=== PATIENT | female | born 1985 ===

== ENCOUNTER 2019-06-15 20:28 | Inpatient (IN) | payer MEDICAID ==
[2019-06-15] MEDS ORDERED: LACTATED RINGERS 500 ML IV ONE (21:16)
[2019-06-15] MEDS ORDERED: SODIUM CHLORIDE NASAL SPRAY 44ML NS PRN (21:30)
[2019-06-15] MEDS ORDERED: ONDANSETRON 4 MG/2 ML INJ IV PRN (21:30)
[2019-06-15] MEDS ORDERED: SIMETHICONE 80 MG CHEW TAB PO PRN (21:30)
[2019-06-15] MEDS ORDERED: diphenhydrAMINE 25 MG CAP PO PRN (21:30)
[2019-06-15] MEDS ORDERED: ACETAMINOPHEN 325 MG TAB PO PRN (21:30)
[2019-06-15] MEDS ORDERED: MAGNESIUM HYDROXIDE (MOM) ORAL LIQD UDC PO PRN (21:30)
[2019-06-15] MEDS ORDERED: MAGNESIUM SULFATE 4 GM/100 ML BAG IV ONE (21:37)
[2019-06-15] MEDS: LACTATED RINGERS 1,000 ML IV SCH (22:47)
[2019-06-15] MEDS: BETAMET ACET/BETAMET NA PH 6 MG/ML INJ 5 ML MDV IM SCH (23:26)
[2019-06-15] MEDS: AMPICILLIN/NS 2 GM/100 ML 2 GM/100 ML BAG IV SCH (23:30)
[2019-06-15 23:36] LABS: Basophils % (Auto) 0.2 % (0.0-1.8); Eosinophils # (Auto) 0.1 K/mm3 (0.0-0.4); Eosinophils % (Auto) 0.6 % (0.0-4.3); Hematocrit 36.7 % (30.3-42.9); Hemoglobin 12.3 gm/dl (10.1-14.3); Lymphocytes # (Auto) 2.4 K/mm3 (1.2-5.4); Lymphocytes % (Auto) 21.3 % (13.4-35.0); Mean Corpuscular HGB Conc 34 % (30-34); Mean Corpuscular Volume 91 fl (79-97); Monocytes # (Auto) 0.9 K/mm3 (0.0-0.8); Monocytes % (Auto) 7.9 % (0.0-7.3); Platelet Count 287 K/mm3 (140-440); Red Blood Count 4.05 M/mm3 (3.65-5.03); Red Cell Distribution Width 13.1 % (13.2-15.2)
[2019-06-16 04:47] LABS: Bilirubin,Urine NEG (Negative); Blood,Urine MOD (Negative); Color,Urine Straw (Yellow); Mucus,Urine FEW /HPF; Protein,Urine <15 mg/dL mg/dL (Negative); Urobilinogen,Urine < 2.0 mg/dL (<2.0)
--- NOTE | 2019-06-16 05:49 | History and Physical Report ---
History of Present Illness Date of examination: 06/16/19 Date of admission: 06/15/19 21:31 Chief complaint: my water broke History of present illness: Pt is a 33 year old primigravida LAURA 08/14/19 at 31w4d who presents with complaint of leakage of fluid since 0730 am on 06/15/19. She reports leakage of clear fluid but pt initially was unsure if it was her amniotic fluid. She wore a pad and it was full of fluid over the course of the day so she presented to the hospital. She reports irregular contractions and denies vaginal bleeding. She has had care at [facility] since transfer into care at 22 weeks that has been complicated by cystitis in December 2018 with negative test of cure in February 2019. Her GBS status is unknown. Past History Past Medical History: no pertinent history Past Surgical History: no surgical history [employer] History: abnormal PAP smear (HPV ) Family/Genetic History: diabetes Social history: no significant social history - Obstetrical History Expected Date of Delivery: 08/14/19 Actual Gestation: 31 Week(s) 5 Day(s) : 1 Medications and Allergies Allergies Allergy/AdvReac Type Severity Reaction Status Date / Time No Known Allergies Allergy Verified 06/15/19 21:16 Home Medications Medication Instructions Recorded Confirmed Last Taken Type No Known Home Medications [No 06/16/19 06/16/19 Unknown History Reported Home Medications] Active Meds: Active Medications Acetaminophen (Tylenol) 650 mg PO Q4H PRN PRN Reason: Pain MILD(1-3)/Fever >100.5/ELIZONDO Amoxicillin (Trimox) 250 mg PO Q8HR KELLY; Protocol Stop: 06/22/19 21:59 Betamethasone Acet/Betameth SodPhos (Celestone Soluspan) 12 mg IM Q24H KELLY Stop: 06/16/19 22:01 Last Admin: 06/15/19 23:26 Dose: 12 mg Documented by: Diphenhydramine HCl (Benadryl) 25 mg PO Q6H PRN PRN Reason: Itching Docusate Sodium (Colace) 100 mg PO Q12H PRN PRN Reason: Constipation Erythromycin (Erythromycin Base) 250 mg PO Q8HR KELLY; Protocol Stop: 06/22/19 21:59 Lactated Ringer's (Lactated Ringers) 1,000 mls @ 125 mls/hr IV DIRECT KELLY Last Admin: 06/15/19 22:47 Dose: 75 mls/hr Documented by: Ampicillin Sodium (Ampicillin/Ns 2 Gm/100 Ml) 2 gm in 100 mls @ 100 mls/hr IV Q6HR KELLY; Protocol Stop: 06/17/19 18:59 Erythromycin Lactobionate 250 (mg/ Sodium Chloride) 100 mls @ 100 mls/hr IV Q6HR KELLY; Protocol Stop: 06/17/19 18:59 Magnesium Sulfate (Magnesium Sulfate 40gm/1000ml) 40 gm in 1,000 mls @ 50 mls/hr IV DIRECT KELLY Magnesium Hydroxide (Milk Of Magnesia) 30 ml PO QHS PRN PRN Reason: Laxative Effect Multivitamins/Iron/Calcium ( Vitamin) 1 each PO QDAY KELLY Ondansetron HCl (Zofran) 4 mg IV Q6H PRN PRN Reason: Nausea And Vomiting Simethicone (Mylicon) 80 mg PO Q6H PRN PRN Reason: Gas pain Sodium Chloride (Deep Sea) 2 spray NS Q4H PRN PRN Reason: Congestion Review of Systems All systems: negative Constitutional: no fever, no chills Gastrointestinal: no abdominal pain - Vital Signs Vital signs: Vital Signs Temp Pulse Resp BP Pulse Ox 97.9 F 75 16 107/65 98 06/15/19 20:40 06/15/19 20:40 06/15/19 20:40 06/15/19 20:40 06/15/19 20:40 Temp Pulse Resp BP Pulse Ox 98.3 F 78 18 128/60 100 06/15/19 22:01 06/16/19 05:44 06/15/19 22:01 06/16/19 05:44 06/16/19 05:44 - Physical Exam Breasts: Positive: deferred Cardiovascular: Regular rate Lungs: Positive: Clear to auscultation Abdomen: Positive: soft (gravid ) Genitourinary (Female): Positive: normal external genitalia Uterus: Positive: enlarged (gravid ) - Obstetrical FHR: auscultation normal Cervical Dilatation: 1 (per RN ) Results Result Diagrams: 06/15/19 22:15 Abnormal lab results 06/15/19 Range/Units 22:15 WBC 11.5 H (4.5-11.0) K/mm3 RDW 13.1 L (13.2-15.2) % [place] % (Auto) 7.9 H (0.0-7.3) % [place] # 0.9 H (0.0-0.8) K/mm3 Seg Neutrophils # 8.0 H (1.8-7.7) K/mm3 All other labs normal. Assessment and Plan A: IUP at 31w4d PPROM P: Admit to antepartum service Latency Antibiotics Magnesium sulfate for neuroprotection Betamethasone course for lung maturity MFM consult NICU consult Closely monitor for signs of chorioamnionitis
[2019-06-16] MEDS: AMPICILLIN/NS 2 GM/100 ML 2 GM/100 ML BAG IV SCH ×3 (05:55→19:20)
[2019-06-16] MEDS: ERYTHROMYCIN LACTOBIONATE 250 MG in SODIUM CHLORIDE 0.9% 100 ML IV SCH ×4 (06:20→20:15)
--- NOTE | 2019-06-16 08:47 | Ultrasound Report ---
Ultrasound OB biophysical profile INDICATION: Premature rupture membranes, well being FINDINGS: respiration, tone and motion are well visualized and normal. Amniotic fluid volume is normal. Biophysical profile score is 8/8. heart rate is 148 bpm IMPRESSION: The biophysical profile score is 8/8. Signer Name: Sarita Combs MD Signed: 06/16/2019 1:42 AM Workstation Name: [id number]
--- NOTE | 2019-06-16 08:47 | Ultrasound Report ---
ULTRASOUND OBSTETRIC, limited, follow-up INDICATION / CLINICAL INFORMATION: PPROM, IUP at 31 wks. Clinical Gestational Age (GA): 31 weeks 4 days TECHNIQUE: Transabdominal. COMPARISON: None available. FINDINGS: There is a single intrauterine . Biparietal Diameter = 7.0 cm = 28 weeks, 1 day(s). Head Circumference = 27.5 cm = 30 weeks, 1 day(s). Abdominal Circumference = 28.8 cm = 32 weeks, 5 day(s). Femur Length = 6.1 cm = 31 weeks, 3 day(s). Average Ultrasound Age (AUA) = 30 weeks, 4 day(s). Heart Rate: 148 beats per minute. Estimated Weight in grams (if calculated): 4 lbs. 0 oz. (1816 g) Estimated Weight Growth Percentile (if calculated): 42 percentile Position: cephalic. Cervix: closed. Length in cm (if measured): 1.7 cm Placenta: Left lateral, grade 2 and free of the os. Amniotic Fluid Volume: normal Amniotic Fluid Index (SHAHRZAD) in cm (if calculated): 12.3 cm. Maternal Adnexa: No significant abnormality. IMPRESSION: 1. Single, living intrauterine with estimated sonographic age of 30 weeks, 4 day(s). 2. No significant sonographic abnormality. 3. Cervical length is measuring 1.7 cm. Signer Name: Sarita Combs MD Signed: 06/16/2019 1:45 AM Workstation Name: [id number]
--- NOTE | 2019-06-16 10:45 | Consultation ---
History of Present Illness Reason for consult: PROM (Patient is a 33 yo female reports LAURA of 08/14/2019 at 31.4 weeks No records available for review . Prior to today's consult pt has not been seen by [facility] . Reports LOF/ROM 06/15/19 @ 7 am however did not present to [facility] until 06/15/19 8 pm . Denies VB , temp/chills , ABD pain , DFM , and regular contractions. Occasional ctx was noted ), other Past History - Obstetrical History : 1 Medications and Allergies Allergies Allergy/AdvReac Type Severity Reaction Status Date / Time No Known Allergies Allergy Verified 06/15/19 21:16 Active Meds: Active Medications Acetaminophen (Tylenol) 650 mg PO Q4H PRN PRN Reason: Pain MILD(1-3)/Fever >100.5/ELIZONDO Amoxicillin (Trimox) 250 mg PO Q8HR KELLY; Protocol Stop: 06/22/19 21:59 Betamethasone Acet/Betameth SodPhos (Celestone Soluspan) 12 mg IM Q24H KELLY Stop: 06/16/19 22:01 Last Admin: 06/15/19 23:26 Dose: 12 mg Documented by: Diphenhydramine HCl (Benadryl) 25 mg PO Q6H PRN PRN Reason: Itching Docusate Sodium (Colace) 100 mg PO Q12H PRN PRN Reason: Constipation Erythromycin (Erythromycin Base) 250 mg PO Q8HR KELLY; Protocol Stop: 06/22/19 21:59 Lactated Ringer's (Lactated Ringers) 1,000 mls @ 125 mls/hr IV DIRECT KELLY Last Admin: 06/15/19 22:47 Dose: 75 mls/hr Documented by: Ampicillin Sodium (Ampicillin/Ns 2 Gm/100 Ml) 2 gm in 100 mls @ 100 mls/hr IV Q6HR KELLY; Protocol Stop: 06/17/19 18:59 Last Admin: 06/16/19 05:55 Dose: 100 mls/hr Documented by: Erythromycin Lactobionate 250 (mg/ Sodium Chloride) 100 mls @ 100 mls/hr IV Q6HR KELLY; Protocol Stop: 06/17/19 18:59 Last Admin: 06/16/19 06:20 Dose: 100 mls/hr Documented by: Magnesium Sulfate (Magnesium Sulfate 40gm/1000ml) 40 gm in 1,000 mls @ 50 mls/hr IV DIRECT KELLY Magnesium Hydroxide (Milk Of Magnesia) 30 ml PO QHS PRN PRN Reason: Laxative Effect Multivitamins/Iron/Calcium ( Vitamin) 1 each PO QDAY KELLY Ondansetron HCl (Zofran) 4 mg IV Q6H PRN PRN Reason: Nausea And Vomiting Simethicone (Mylicon) 80 mg PO Q6H PRN PRN Reason: Gas pain Sodium Chloride (Deep Sea) 2 spray NS Q4H PRN PRN Reason: Congestion Review of Systems Constitutional: no fever, no chills Eyes: other (denies VB ) Ears, nose, mouth and throat: no headache Cardiovascular: no rapid/irregular heart beat, no edema, no shortness of breath Respiratory: no shortness of breath Breasts: deferred Gastrointestinal: no vomiting, no diarrhea Genitourinary: leakage of fluid, contractions (denies regular contractions ), no vaginal bleeding, no vaginal discharge, no pelvic pain Musculoskeletal: no low back pain Integumentary: no rash Psychiatric: no depression Endocrine: other (BMZ for FLM in progress ), no high blood sugars Allergic/Immunologic: no wheezing - Vital Signs Vital signs: Vital Signs Temp Pulse Resp BP Pulse Ox 97.9 F 75 16 107/65 98 06/15/19 20:40 06/15/19 20:40 06/15/19 20:40 06/15/19 20:40 06/15/19 20:40 Temp Pulse Resp BP Pulse Ox 98.3 F 100 H 18 92/51 99 06/15/19 22:01 06/16/19 10:39 06/15/19 22:01 06/16/19 10:05 06/16/19 10:39 - Physical Exam Breasts: Positive: deferred Cardiovascular: Regular rate Lungs: Positive: Normal air movement Abdomen: Positive: other (gravid ). Negative: tenderness, guarding Cervix: Positive: other (see OB's note for cervical exam assessment ) Uterus: Positive: other (gravid). Negative: tender Extremities: Positive: normal Deep Tendon Reflex Grade: Normal +2 - Obstetrical FHR: category 1 Uterine Contraction Monitor Mode: External Uterine Contraction Pattern: Irregular Uterine Contraction Intensity: Mild Results Result Diagrams: 06/15/19 22:15 Abnormal lab results 06/15/19 Range/Units 22:15 WBC 11.5 H (4.5-11.0) K/mm3 RDW 13.1 L (13.2-15.2) % [place] % (Auto) 7.9 H (0.0-7.3) % [place] # 0.9 H (0.0-0.8) K/mm3 Seg Neutrophils # 8.0 H (1.8-7.7) K/mm3 All other labs normal. Ultrasound: report reviewed (see [facility] chart for full report: BPP 03/11 with SHAHRZAD of 12.3 cm and shortened cervical length assessment of 1.7 cm ) Assessment and Plan A) - IUP @ 31.4 weeks - PPROM @ 06/15/19 - Occasional contraction - Cervical incompetence [facility] US cervical length assessment of 1.7 cm - Afebrile / no sxs of chorio - [facility] U/S reassuring growth assessment with EFW 41% - BMZ for FLM in progress - MgSO4 for neuroprotection in progress - IV ABX for GBS prophylactic in progress P ) In agreement with admission Continuous monitoring complete BMZ MgSO4 per protocol IV ABX per protocol Weekly CBC Twice a week BPP Q2 weeks interval growth assessment NICU consult Obtain PNR Delivery at 34 weeks Delivery with concern for Chorio , distress, and /or maternal / compromise With subsequent early evaluation for current concern of Cervical incompetence With any concerns or further evaluation notify the cotton candy maker [facility] provider
[2019-06-16] MEDS: PRENATAL VIT27-FE FUMARATE-FOLIC ACID VIT TAB PO SCH (11:05)
--- NOTE | 2019-06-16 20:23 | Consultation ---
Consult Note - Parent Education I met with parent(s) and discussed the following:: Need for NICU admission, Poss ible need for intubation and surfactant or other resp support, Temperature regulation, Head ultrasounds to evaluate IVH, Eye exams for ROP screening, Possible need for IV fluids/TPN and IV antibiotics, Possible need for umbilical lines, Importance of providing breast milk & encouraged pumping aft delivery (mother expressed interest in EBF/DBM), Donor breast milk if baby meets criteria after , Slow feeding advancement and monitoring of tolerance. NG/OG feeds, Need to monitor for jaundice, Data for survival & survival without significant co-morbidities Parent(s) demonstrated understanding of all the information:: Yes Assessment and Plan - Assessment Gestation:: 31 (31 3/7 weeker) Estimated Weight: 1816 gms Baby's name: N/A Additional Comment: 33YO mother. complicated by PPROM (ROM 06/15/19 @ 0394). Infant received x1 betamethasone. Will rec'd 2nd dose tonight. Mother is on amp and mag. Mother does not know infant's sex and anticipate to know at time of delivery. - Plan Plan: Agree with Mag & steroids Will attend delivery Please call NICU with questions
[2019-06-16] MEDS: BETAMET ACET/BETAMET NA PH 6 MG/ML INJ 5 ML MDV IM SCH (22:15)
[2019-06-16] MEDS: DOCUSATE SODIUM 100 MG CAP PO PRN (22:20)
[2019-06-17] MEDS: ERYTHROMYCIN LACTOBIONATE 250 MG in SODIUM CHLORIDE 0.9% 100 ML IV SCH ×4 (00:35→21:22)
[2019-06-17] MEDS: AMPICILLIN/NS 2 GM/100 ML 2 GM/100 ML BAG IV SCH ×4 (06:00→19:17)
--- NOTE | 2019-06-17 08:00 | Progress Note ---
Assessment and Plan A: IUP at 31w5d s/p betamethasone on 06/15 and 06/16; magnesium sulfate for neuroprotection; BPP /8 06/15/19; no signs/symptoms of chorioamnionitis at this time PPROM on latency antibiotics P: Continue current management Subjective - Subjective Date of service: 06/17/19 Principal diagnosis: IUP at 31w5d, PPROM Interval history: No issues overnight. Patient reports: loss of fluid (per HPI ), movement normal, no new complaints, no vaginal bleeding, no contractions Objective - Vital Signs Vital Signs: Vital Signs - 12hr 06/16/19 06/16/19 06/16/19 20:04 20:05 20:09 Temperature Pulse Rate 97 H 100 H 104 H Respiratory Rate Blood Pressure 102/62 O2 Sat by Pulse 100 98 Oximetry 06/16/19 06/16/19 06/16/19 20:14 20:19 20:24 Temperature Pulse Rate 93 H 91 H 100 H Respiratory Rate Blood Pressure O2 Sat by Pulse 98 99 99 Oximetry 06/16/19 06/16/19 06/16/19 20:29 20:36 20:41 Temperature Pulse Rate 90 97 H 92 H Respiratory Rate Blood Pressure O2 Sat by Pulse 99 99 100 Oximetry 06/16/19 06/16/19 06/16/19 20:46 20:51 20:56 Temperature Pulse Rate 98 H 96 H 97 H Respiratory Rate Blood Pressure O2 Sat by Pulse 99 100 100 Oximetry 06/16/19 06/16/19 06/16/19 21:01 21:06 21:11 Temperature Pulse Rate 102 H 100 H 103 H Respiratory Rate Blood Pressure O2 Sat by Pulse 99 98 99 Oximetry 06/16/19 06/16/19 06/16/19 21:15 21:16 21:21 Temperature 97.5 F L Pulse Rate 103 H 99 H Respiratory 16 Rate Blood Pressure O2 Sat by Pulse 99 99 Oximetry 06/16/19 06/16/19 06/16/19 21:26 21:31 21:48 Temperature Pulse Rate 105 H 96 H 107 H Respiratory Rate Blood Pressure O2 Sat by Pulse 98 99 98 Oximetry 06/16/19 06/16/19 06/16/19 21:53 21:58 22:03 Temperature Pulse Rate 98 H 98 H 100 H Respiratory Rate Blood Pressure O2 Sat by Pulse 99 99 99 Oximetry 06/16/19 06/16/19 06/16/19 22:05 22:08 22:13 Temperature Pulse Rate 105 H 97 H 95 H Respiratory Rate Blood Pressure 101/51 O2 Sat by Pulse 99 98 Oximetry 06/16/19 06/16/19 06/16/19 22:18 22:23 22:28 Temperature Pulse Rate 97 H 95 H 90 Respiratory Rate Blood Pressure O2 Sat by Pulse 99 99 99 Oximetry 06/16/19 06/16/19 06/16/19 22:33 22:38 22:43 Temperature Pulse Rate 92 H 97 H 92 H Respiratory Rate Blood Pressure O2 Sat by Pulse 99 99 99 Oximetry 06/16/19 06/16/19 06/16/19 22:48 22:53 22:58 Temperature Pulse Rate 90 89 82 Respiratory Rate Blood Pressure O2 Sat by Pulse 99 98 99 Oximetry 06/16/19 06/16/19 06/16/19 23:03 23:08 23:13 Temperature Pulse Rate 90 109 H 88 Respiratory Rate Blood Pressure O2 Sat by Pulse 98 97 97 Oximetry 06/16/19 06/16/19 06/16/19 23:15 23:18 23:23 Temperature 97.6 F Pulse Rate 87 87 Respiratory 15 Rate Blood Pressure 97/52 O2 Sat by Pulse 97 97 Oximetry 06/16/19 06/16/19 06/16/19 23:28 23:33 23:38 Temperature Pulse Rate 85 89 86 Respiratory Rate Blood Pressure O2 Sat by Pulse 97 97 97 Oximetry 06/16/19 06/16/19 06/16/19 23:43 23:48 23:53 Temperature Pulse Rate 88 102 H 89 Respiratory Rate Blood Pressure O2 Sat by Pulse 97 97 97 Oximetry 06/16/19 06/17/19 06/17/19 23:58 00:03 00:08 Temperature Pulse Rate 92 H 85 90 Respiratory Rate Blood Pressure O2 Sat by Pulse 98 99 99 Oximetry 06/17/19 06/17/19 06/17/19 00:13 00:18 00:23 Temperature Pulse Rate 106 H 91 H 83 Respiratory Rate Blood Pressure 88/54 O2 Sat by Pulse 99 99 98 Oximetry 06/17/19 06/17/19 06/17/19 00:28 00:33 00:38 Temperature Pulse Rate 95 H 83 91 H Respiratory Rate Blood Pressure O2 Sat by Pulse 99 99 99 Oximetry 06/17/19 06/17/19 06/17/19 00:43 00:48 00:53 Temperature Pulse Rate 89 86 84 Respiratory Rate Blood Pressure O2 Sat by Pulse 98 98 98 Oximetry 06/17/19 06/17/19 06/17/19 00:58 01:03 01:08 Temperature Pulse Rate 89 85 85 Respiratory Rate Blood Pressure O2 Sat by Pulse 98 98 98 Oximetry 06/17/19 06/17/19 06/17/19 01:13 01:18 01:23 Temperature Pulse Rate 84 86 103 H Respiratory Rate Blood Pressure 99/58 O2 Sat by Pulse 98 98 98 Oximetry 06/17/19 06/17/19 06/17/19 01:28 01:33 01:38 Temperature Pulse Rate 84 88 97 H Respiratory Rate Blood Pressure O2 Sat by Pulse 98 98 99 Oximetry 06/17/19 06/17/19 06/17/19 01:43 01:48 01:53 Temperature Pulse Rate 99 H 106 H 92 H Respiratory Rate Blood Pressure O2 Sat by Pulse 98 99 98 Oximetry 06/17/19 06/17/19 06/17/19 01:58 02:03 02:08 Temperature Pulse Rate 91 H 92 H 86 Respiratory Rate Blood Pressure O2 Sat by Pulse 98 98 99 Oximetry 06/17/19 06/17/19 06/17/19 02:13 02:18 02:23 Temperature Pulse Rate 89 90 91 H Respiratory Rate Blood Pressure 101/59 O2 Sat by Pulse 98 98 98 Oximetry 06/17/19 06/17/19 06/17/19 02:28 02:33 02:37 Temperature 98.0 F Pulse Rate 88 90 Respiratory 16 Rate Blood Pressure O2 Sat by Pulse 98 98 Oximetry 06/17/19 06/17/19 06/17/19 02:38 02:43 02:48 Temperature Pulse Rate 90 91 H 90 Respiratory Rate Blood Pressure O2 Sat by Pulse 97 97 97 Oximetry 06/17/19 06/17/19 06/17/19 02:53 02:58 03:03 Temperature Pulse Rate 89 88 89 Respiratory Rate Blood Pressure O2 Sat by Pulse 97 97 97 Oximetry 06/17/19 06/17/19 06/17/19 03:08 03:13 03:18 Temperature Pulse Rate 90 90 90 Respiratory Rate Blood Pressure O2 Sat by Pulse 96 97 97 Oximetry 06/17/19 06/17/1906/17/19 03:23 03:28 03:33 Temperature Pulse Rate 90 90 92 H Respiratory Rate Blood Pressure 88/57 O2 Sat by Pulse 97 97 97 Oximetry 06/17/19 06/17/19 06/17/19 03:38 03:43 03:48 Temperature Pulse Rate 89 86 85 Respiratory Rate Blood Pressure O2 Sat by Pulse 97 98 97 Oximetry 06/17/19 06/17/19 06/17/19 03:53 03:58 04:03 Temperature Pulse Rate 93 H 93 H 98 H Respiratory Rate Blood Pressure O2 Sat by Pulse 98 99 98 Oximetry 06/17/19 06/17/19 06/17/19 04:08 04:13 04:18 Temperature Pulse Rate 93 H 89 89 Respiratory Rate Blood Pressure O2 Sat by Pulse 99 99 99 Oximetry 06/17/19 06/17/19 06/17/19 04:23 04:28 04:30 Temperature 97.5 F L Pulse Rate 94 H 96 H Respiratory 15 Rate Blood Pressure 96/53 O2 Sat by Pulse 99 98 99 Oximetry 06/17/19 06/17/19 06/17/19 04:33 04:38 04:43 Temperature Pulse Rate 91 H 92 H 94 H Respiratory Rate Blood Pressure O2 Sat by Pulse 99 99 98 Oximetry 06/17/19 06/17/19 06/17/19 04:48 04:53 04:58 Temperature Pulse Rate 95 H 93 H 90 Respiratory Rate Blood Pressure O2 Sat by Pulse 99 99 99 Oximetry 06/17/19 06/17/19 06/17/19 05:03 05:08 05:13 Temperature Pulse Rate 88 90 94 H Respiratory Rate Blood Pressure O2 Sat by Pulse 98 98 99 Oximetry 06/17/19 06/17/19 06/17/19 05:18 05:23 05:24 Temperature Pulse Rate 101 H 101 H 96 H Respiratory Rate Blood Pressure 90/53 O2 Sat by Pulse 98 99 Oximetry 06/17/19 06/17/19 06/17/19 05:28 05:33 05:38 Temperature Pulse Rate 97 H 95 H 96 H Respiratory Rate Blood Pressure O2 Sat by Pulse 99 98 99 Oximetry 06/17/19 06/17/19 06/17/19 05:43 05:48 05:53 Temperature Pulse Rate 93 H 95 H 91 H Respiratory Rate Blood Pressure O2 Sat by Pulse 99 98 98 Oximetry 06/17/19 06/17/19 06/17/19 05:58 06:03 06:06 Temperature Pulse Rate 69 68 170 H Respiratory Rate Blood Pressure O2 Sat by Pulse 87 86 84 Oximetry 06/17/19 06/17/19 06/17/19 06:12 06:17 06:19 Temperature Pulse Rate 106 H 53 L Respiratory Rate Blood Pressure O2 Sat by Pulse 87 83 L 85 Oximetry 06/17/19 06/17/19 06/17/19 06:23 06:24 06:29 Temperature Pulse Rate 83 82 77 Respiratory Rate Blood Pressure 106/59 O2 Sat by Pulse 99 100 Oximetry 06/17/19 06/17/19 06/17/19 06:34 06:39 06:44 Temperature Pulse Rate 91 H 78 88 Respiratory Rate Blood Pressure O2 Sat by Pulse 99 98 97 Oximetry 06/17/19 06/17/19 06/17/19 06:49 06:54 06:59 Temperature Pulse Rate 86 80 81 Respiratory Rate Blood Pressure O2 Sat by Pulse 97 96 97 Oximetry 06/17/19 06/17/19 06/17/19 07:04 07:09 07:14 Temperature Pulse Rate 80 81 86 Respiratory Rate Blood Pressure O2 Sat by Pulse 96 96 97 Oximetry 06/17/19 06/17/19 06/17/19 07:19 07:23 07:24 Temperature Pulse Rate 80 99 H 89 Respiratory Rate Blood Pressure 88/55 O2 Sat by Pulse 97 98 Oximetry 06/17/19 06/17/19 06/17/19 07:29 07:34 07:39 Temperature Pulse Rate 79 80 80 Respiratory Rate Blood Pressure O2 Sat by Pulse 96 97 97 Oximetry 06/17/19 06/17/19 06/17/19 07:44 07:49 07:54 Temperature Pulse Rate 88 95 H 95 H Respiratory Rate Blood Pressure O2 Sat by Pulse 96 98 98 Oximetry 06/17/19 07:57 Temperature 98.3 F Pulse Rate Respiratory 20 Rate Blood Pressure O2 Sat by Pulse Oximetry - Exam Breasts: deferred Abdomen: Present: soft (gravid ) Uterus: Present: normal (gravid ) FHR: auscultation normal Uterine Contraction Monitor Mode: External Uterine Contraction Pattern: Irregular Uterine Tone Measurement Phase: Resting Extremities: normal - Labs Labs: Abnormal Labs 06/15/19 06/16/19 06/16/19 22:15 06:16 08:43 WBC 11.5 H RDW 13.1 L [place] % (Auto) 7.9 H [place] # 0.9 H Seg Neutrophils # 8.0 H Magnesium 4.40 H 4.60 H 06/16/19 06/17/19 15:27 00:01 WBC RDW [place] % (Auto) [place] # Seg Neutrophils # Magnesium 4.80 H 4.80 H Laboratory Results - last 24 hr 06/16/19 06/16/19 06/16/19 06:16 08:43 15:27 Magnesium 4.40 H 4.60 H 4.80 H 06/17/19 00:01 Magnesium 4.80 H - Results US- obstetric: report reviewed
[2019-06-17] MEDS: DOCUSATE SODIUM 100 MG CAP PO PRN (10:21)
[2019-06-17] MEDS: PRENATAL VIT27-FE FUMARATE-FOLIC ACID VIT TAB PO SCH (10:21)
[2019-06-17] MEDS: LACTATED RINGERS 1,000 ML IV SCH (10:50)
[2019-06-17] MEDS: MAGNESIUM SULFATE 40GM/1000ML 40 GM/1,000 ML BAG IV SCH (10:55)
[2019-06-17] MEDS ORDERED: ceFAZolin/Water 2 GM/20 ML 0 GM/0 ML SYRINGE IV ONE (21:04)
[2019-06-18] MEDS: LACTATED RINGERS 1,000 ML IV SCH ×2 (02:25→15:38)
[2019-06-18] MEDS: ERYTHROMYCIN BASE 250 MG CAPSULE DR PO SCH ×3 (05:35→21:40)
[2019-06-18] MEDS: AMOXICILLIN 250 MG CAP PO SCH ×2 (05:36→21:40)
[2019-06-18] MEDS: MAGNESIUM SULFATE 40GM/1000ML 40 GM/1,000 ML BAG IV SCH (07:19)
--- NOTE | 2019-06-18 13:56 | Consultation ---
History of Present Illness Consult date: 06/18/19 Requesting physician: JASON JO History of present illness: APA/MFM - 06/18/19 Progress Note PROM (Patient is a 33 yo female reports LAURA of 08/14/2019 at 31 6/7 weeks Reports LOF/ROM 06/15/19 @ 7 am however did not present to [facility] until 06/15/19 8 pm . Denies vag bleeding temp paini Occasional ctx's Reports still leaking EFM occ ctx 140's no decels Abd NT EXT NT no edema Past History Past Medical History: no pertinent history Past Surgical History: no surgical history [employer] History: abnormal PAP smear (HPV ) Family/Genetic History: diabetes - Obstetrical History : 1 Medications and Allergies Allergies Allergy/AdvReac Type Severity Reaction Status Date / Time No Known Allergies Allergy Verified 06/15/19 21:16 Home Medications Medication Instructions Recorded Confirmed Last Taken Type No Known Home Medications [No 06/16/19 06/16/19 Unknown History Reported Home Medications] Active Meds: Active Medications Acetaminophen (Tylenol) 650 mg PO Q4H PRN PRN Reason: Pain MILD(1-3)/Fever >100.5/ELIZONDO Amoxicillin (Trimox) 250 mg PO Q8HR KELLY; Protocol Stop: 06/22/19 21:59 Last Admin: 06/18/19 05:36 Dose: 250 mg Documented by: Diphenhydramine HCl (Benadryl) 25 mg PO Q6H PRN PRN Reason: Itching Docusate Sodium (Colace) 100 mg PO Q12H PRN PRN Reason: Constipation Last Admin: 06/17/19 10:21 Dose: 100 mg Documented by: Erythromycin (Erythromycin Base) 250 mg PO Q8HR KELLY; Protocol Stop: 06/22/19 21:59 Last Admin: 06/18/19 05:35 Dose: 250 mg Documented by: Lactated Ringer's (Lactated Ringers) 1,000 mls @ 125 mls/hr IV DIRECT KELLY Last Admin: 06/18/19 02:25 Dose: 75 mls/hr Documented by: Magnesium Sulfate (Magnesium Sulfate 40gm/1000ml) 40 gm in 1,000 mls @ 50 mls/hr IV DIRECT KELLY Last Admin: 06/18/19 07:19 Dose: 2 gm/hr, 50 mls/hr Documented by: Magnesium Hydroxide (Milk Of Magnesia) 30 ml PO QHS PRN PRN Reason: Laxative Effect Multivitamins/Iron/Calcium ( Vitamin) 1 each PO QDAY KELLY Last Admin: 06/17/19 10:21 Dose: 1 each Documented by: Ondansetron HCl (Zofran) 4 mg IV Q6H PRN PRN Reason: Nausea And Vomiting Simethicone (Mylicon) 80 mg PO Q6H PRN PRN Reason: Gas pain Sodium Chloride (Deep Sea) 2 spray NS Q4H PRN PRN Reason: Congestion - Vital Signs Vital signs: Vital Signs Temp Pulse Resp BP Pulse Ox 97.9 F 75 16 107/65 98 06/15/19 20:40 06/15/19 20:40 06/15/19 20:40 06/15/19 20:40 06/15/19 20:40 Temp Pulse Resp BP Pulse Ox 99.5 F 78 16 97/57 98 06/18/19 11:17 06/18/19 13:48 06/18/19 04:00 06/18/19 13:09 06/18/19 13:48 Results Result Diagrams: 06/15/19 22:15 Abnormal lab results 06/17/19 06/17/19 06/18/19 Range/Units 15:47 21:18 00:08 Magnesium 4.70 H 4.40 H 4.50 H (1.7-2.3) mg/dL 06/18/19 Range/Units 05:36 Magnesium 4.50 H (1.7-2.3) mg/dL All other labs normal. Assessment and Plan Impression - Abebe IUP at 31 6/7 weeks - PPROM @ 06/15/19 - Occasional contraction - Cervical incompetence [facility] US cervical length assessment of 1.7 cm - Afebrile / no sxs of chorio - [facility] U/S reassuring growth assessment with EFW 41% - BMZ for FLM in progress - MgSO4 for neuroprotection - Completed - IV ABX for GBS prophylactic - IV Completed now on PO Recommendations Weekly CBC Twice a week BPP on Friday and Q2 weeks interval growth assessment NICU consult - Done per patient Obtain PNR Delivery at 34 weeks Delivery with concern for Chorio , distress, and /or maternal / compromise With subsequent early evaluation for current concern of Cervical incompetence Reviewed with Dr. Tammie Jo
--- NOTE | 2019-06-18 13:58 | Progress Note ---
Assessment and Plan : IUP at 31w6d s/p betamethasone on 06/15 and 06/16; magnesium sulfate for neuroprotection; BPP /06/15/19; no signs/symptoms of chorioamnionitis at this time PPROM on latency antibiotics - on po abx P: Continue current management BPP 2x weekly on Friday and closelymonitor maternal and status Subjective - Subjective Date of service: 06/18/19 Principal diagnosis: IUP at 31w5d, PPROM Patient reports: loss of fluid (per HPI ), movement normal, no new complaints, no vaginal bleeding, no contractions Objective - Vital Signs Vital Signs: Vital Signs - 12hr 06/18/19 06/18/19 06/18/19 01:54 01:59 02:04 Temperature Pulse Rate 81 86 81 Respiratory Rate Blood Pressure O2 Sat by Pulse 96 97 96 Oximetry 06/18/19 06/18/19 06/18/19 02:09 02:14 02:19 Temperature Pulse Rate 82 82 79 Respiratory Rate Blood Pressure O2 Sat by Pulse 97 97 96 Oximetry 06/18/19 06/18/19 06/18/19 02:24 02:29 02:58 Temperature Pulse Rate 78 79 70 Respiratory Rate Blood Pressure O2 Sat by Pulse 97 98 98 Oximetry 06/18/19 06/18/19 06/18/19 03:03 03:08 03:13 Temperature Pulse Rate 79 92 H 94 H Respiratory Rate Blood Pressure O2 Sat by Pulse 99 99 100 Oximetry 06/18/19 06/18/19 06/18/19 03:18 03:23 03:28 Temperature Pulse Rate 84 89 79 Respiratory Rate Blood Pressure O2 Sat by Pulse 99 99 99 Oximetry 06/18/19 06/18/19 06/18/19 03:33 03:38 03:43 Temperature Pulse Rate 83 81 76 Respiratory Rate Blood Pressure O2 Sat by Pulse 99 98 98 Oximetry 06/18/19 06/18/19 06/18/19 03:48 03:53 03:58 Temperature Pulse Rate 78 77 80 Respiratory Rate Blood Pressure O2 Sat by Pulse 98 98 98 Oximetry 06/18/19 06/18/19 06/18/19 04:00 04:03 04:08 Temperature 97.8 F Pulse Rate 96 H 83 Respiratory 16 Rate Blood Pressure O2 Sat by Pulse 99 99 Oximetry 06/18/19 06/18/19 06/18/19 04:10 04:13 04:18 Temperature Pulse Rate 80 90 77 Respiratory Rate Blood Pressure 84/48 O2 Sat by Pulse 99 98 Oximetry 06/18/19 06/18/19 06/18/19 04:23 04:28 04:33 Temperature Pulse Rate 77 75 76 Respiratory Rate Blood Pressure O2 Sat by Pulse 97 98 99 Oximetry 06/18/19 06/18/19 06/18/19 04:38 04:43 04:48 Temperature Pulse Rate 72 88 84 Respiratory Rate Blood Pressure O2 Sat by Pulse 99 99 100 Oximetry 06/18/19 06/18/19 06/18/19 04:53 04:58 05:03 Temperature Pulse Rate 79 77 71 Respiratory Rate Blood Pressure O2 Sat by Pulse 99 99 100 Oximetry 06/18/19 06/18/19 06/18/19 05:08 05:09 05:13 Temperature Pulse Rate 77 76 76 Respiratory Rate Blood Pressure 87/50 O2 Sat by Pulse 99 99 Oximetry 06/18/19 06/18/19 06/18/19 05:18 05:23 05:28 Temperature Pulse Rate 74 84 74 Respiratory Rate Blood Pressure O2 Sat by Pulse 97 97 97 Oximetry 06/18/19 06/18/19 06/18/19 05:33 05:38 05:43 Temperature Pulse Rate 74 70 80 Respiratory Rate Blood Pressure O2 Sat by Pulse 99 99 99 Oximetry 06/18/19 06/18/19 06/18/19 05:48 05:53 05:58 Temperature Pulse Rate 75 81 70 Respiratory Rate Blood Pressure O2 Sat by Pulse 99 99 98 Oximetry 06/18/19 06/18/19 06/18/19 06:03 06:08 06:09 Temperature Pulse Rate 84 68 73 Respiratory Rate Blood Pressure 75/44 O2 Sat by Pulse 96 97 Oximetry 06/18/19 06/18/19 06/18/19 06:13 06:18 06:23 Temperature Pulse Rate 72 75 72 Respiratory Rate Blood Pressure O2 Sat by Pulse 98 96 99 Oximetry 06/18/19 06/18/19 06/18/19 06:28 06:33 06:38 Temperature Pulse Rate 73 84 66 Respiratory Rate Blood Pressure O2 Sat by Pulse 98 99 99 Oximetry 06/18/19 06/18/19 06/18/19 06:43 06:48 06:53 Temperature Pulse Rate 69 67 81 Respiratory Rate Blood Pressure O2 Sat by Pulse 99 99 98 Oximetry 06/18/19 06/18/19 06/18/19 06:58 07:00 07:03 Temperature 98.3 F Pulse Rate 71 70 Respiratory Rate Blood Pressure O2 Sat by Pulse 98 99 Oximetry 06/18/19 06/18/19 06/18/19 07:08 07:11 07:13 Temperature Pulse Rate 77 73 71 Respiratory Rate Blood Pressure 80/48 O2 Sat by Pulse 98 99 Oximetry 06/18/19 06/18/19 06/18/19 07:18 07:23 07:28 Temperature Pulse Rate 72 76 73 Respiratory Rate Blood Pressure O2 Sat by Pulse 100 100 100 Oximetry 06/18/19 06/18/19 06/18/19 07:33 07:38 07:43 Temperature Pulse Rate 79 85 79 Respiratory Rate Blood Pressure O2 Sat by Pulse 99 100 100 Oximetry 06/18/19 06/18/19 06/18/19 07:48 07:53 07:58 Temperature Pulse Rate 90 98 H 107 H Respiratory Rate Blood Pressure 116/64 O2 Sat by Pulse 99 99 99 Oximetry 06/18/19 06/18/19 06/18/19 08:03 08:08 08:09 Temperature Pulse Rate 88 86 85 Respiratory Rate Blood Pressure 103/58 O2 Sat by Pulse 100 99 Oximetry 06/18/19 06/18/19 06/18/19 08:13 08:18 08:23 Temperature Pulse Rate 90 90 82 Respiratory Rate Blood Pressure O2 Sat by Pulse 99 100 99 Oximetry 06/18/19 06/18/19 06/18/19 08:28 08:33 08:38 Temperature Pulse Rate 92 H 84 78 Respiratory Rate Blood Pressure O2 Sat by Pulse 99 99 99 Oximetry 06/18/19 06/18/19 06/18/19 08:43 08:48 08:53 Temperature Pulse Rate 84 77 82 Respiratory Rate Blood Pressure O2 Sat by Pulse 100 100 97 Oximetry 06/18/19 06/18/19 06/18/19 08:58 09:03 09:08 Temperature Pulse Rate 82 76 82 Respiratory Rate Blood Pressure O2 Sat by Pulse 98 98 98 Oximetry 06/18/19 06/18/19 06/18/19 09:09 09:13 09:18 Temperature Pulse Rate 85 80 78 Respiratory Rate Blood Pressure 76/50 O2 Sat by Pulse 98 98 Oximetry 06/18/19 06/18/19 06/18/19 09:23 09:28 09:33 Temperature Pulse Rate 79 78 79 Respiratory Rate Blood Pressure O2 Sat by Pulse 97 97 97 Oximetry 06/18/19 06/18/19 06/18/19 09:38 09:43 09:48 Temperature Pulse Rate 78 78 79 Respiratory Rate Blood Pressure O2 Sat by Pulse 98 96 97 Oximetry 06/18/19 06/18/19 06/18/19 09:53 09:58 10:03 Temperature Pulse Rate 75 86 78 Respiratory Rate Blood Pressure O2 Sat by Pulse 96 99 96 Oximetry 06/18/19 06/18/19 06/18/19 10:08 10:09 10:13 Temperature Pulse Rate 78 73 76 Respiratory Rate Blood Pressure 84/46 O2 Sat by Pulse 97 97 Oximetry 06/18/19 06/18/19 06/18/19 10:18 10:23 10:28 Temperature Pulse Rate 98 H 88 81 Respiratory Rate Blood Pressure O2 Sat by Pulse 99 99 98 Oximetry 06/18/19 06/18/19 06/18/19 10:33 10:38 10:43 Temperature Pulse Rate 82 110 H 82 Respiratory Rate Blood Pressure O2 Sat by Pulse 98 98 99 Oximetry 06/18/19 06/18/19 06/18/19 10:48 10:53 10:58 Temperature Pulse Rate 76 75 74 Respiratory Rate Blood Pressure O2 Sat by Pulse 98 98 99 Oximetry 06/18/19 06/18/19 06/18/19 11:03 11:08 11:09 Temperature Pulse Rate 74 84 74 Respiratory Rate Blood Pressure 96/51 O2 Sat by Pulse 99 98 Oximetry 06/18/19 06/18/19 06/18/19 11:13 11:17 11:18 Temperature 99.5 F Pulse Rate 77 82 Respiratory Rate Blood Pressure O2 Sat by Pulse 99 98 Oximetry 06/18/19 06/18/19 06/18/19 11:23 11:28 11:33 Temperature Pulse Rate 78 72 75 Respiratory Rate Blood Pressure O2 Sat by Pulse 99 99 99 Oximetry 06/18/19 06/18/19 06/18/19 11:38 11:43 11:48 Temperature Pulse Rate 78 81 77 Respiratory Rate Blood Pressure O2 Sat by Pulse 98 99 98 Oximetry 06/18/19 06/18/19 06/18/19 11:53 11:58 12:03 Temperature Pulse Rate 77 77 78 Respiratory Rate Blood Pressure O2 Sat by Pulse 98 98 98 Oximetry 06/18/19 06/18/19 06/18/19 12:08 12:09 12:13 Temperature Pulse Rate 81 75 86 Respiratory Rate Blood Pressure 98/62 O2 Sat by Pulse 99 99 Oximetry 06/18/19 06/18/19 06/18/19 12:18 12:23 12:28 Temperature Pulse Rate 74 80 88 Respiratory Rate Blood Pressure O2 Sat by Pulse 99 99 99 Oximetry 06/18/19 06/18/19 06/18/19 12:33 12:38 12:43 Temperature Pulse Rate 84 88 89 Respiratory Rate Blood Pressure O2 Sat by Pulse 100 99 98 Oximetry 06/18/19 06/18/19 06/18/19 12:48 12:53 12:58 Temperature Pulse Rate 87 86 89 Respiratory Rate Blood Pressure O2 Sat by Pulse 100 99 98 Oximetry 06/18/19 06/18/19 06/18/19 13:03 13:08 13:09 Temperature Pulse Rate 99 H 83 80 Respiratory Rate Blood Pressure 97/57 O2 Sat by Pulse 99 99 Oximetry 06/18/19 06/18/19 06/18/19 13:13 13:18 13:23 Temperature Pulse Rate 82 88 79 Respiratory Rate Blood Pressure O2 Sat by Pulse 100 99 99 Oximetry 06/18/19 06/18/19 06/18/19 13:28 13:33 13:38 Temperature Pulse Rate 79 79 79 Respiratory Rate Blood Pressure O2 Sat by Pulse 99 98 99 Oximetry 06/18/19 06/18/19 13:43 13:48 Temperature Pulse Rate 80 78 Respiratory Rate Blood Pressure O2 Sat by Pulse 99 98 Oximetry - Exam Breasts: normal Cardiovascular: Regular rate, Normal S1 Lungs: Clear to auscultation, Normal air movement Abdomen: Present: normal appearance, soft, normal bowel sounds. Absent: distention, tenderness, guarding Uterus: Present: normal, firm. Absent: bogginess, tenderness FHR: category 1 Cervical Dilatation: 1 Uterine Tone Measurement Phase: Resting Extremities: normal Deep Tendon Reflex Grade: Normal +2 - Labs Labs: Abnormal Labs 06/15/19 06/16/19 06/16/19 22:15 06:16 08:43 WBC 11.5 H RDW 13.1 L [place] % (Auto) 7.9 H [place] # 0.9 H Seg Neutrophils # 8.0 H Magnesium 4.40 H 4.60 H 06/16/19 06/17/19 06/17/19 15:27 00:01 07:41 WBC RDW [place] % (Auto) [place] # Seg Neutrophils # Magnesium 4.80 H 4.80 H 4.70 H 06/17/19 06/17/19 06/18/19 15:47 21:18 00:08 WBC RDW [place] % (Auto) [place] # Seg Neutrophils # Magnesium 4.70 H 4.40 H 4.50 H 06/18/19 05:36 WBC RDW [place] % (Auto) [place] # Seg Neutrophils # Magnesium 4.50 H Laboratory Results - last 24 hr 06/17/19 06/17/19 06/18/19 15:47 21:18 00:08 Magnesium 4.70 H 4.40 H 4.50 H 06/18/19 05:36 Magnesium 4.50 H
[2019-06-18] MEDS: DOCUSATE SODIUM 100 MG CAP PO PRN (15:32)
[2019-06-19] MEDS: ERYTHROMYCIN BASE 250 MG CAPSULE DR PO SCH ×3 (05:15→21:57)
[2019-06-19] MEDS: LACTATED RINGERS 1,000 ML IV SCH ×2 (05:15→20:59)
[2019-06-19] MEDS: AMOXICILLIN 250 MG CAP PO SCH ×3 (05:15→21:58)
--- NOTE | 2019-06-19 09:07 | Progress Note ---
Assessment and Plan : IUP at 32weeks s/p betamethasone on 06/15 and 06/16; magnesium sulfate for neuroprotection; BPP /8 06/15/19; no signs/symptoms of chorioamnionitis at this time PPROM on latency antibiotics - on po abx P: Continue current management BPP 2x weekly on Friday and closely monitor maternal and status Subjective - Subjective Date of service: 06/19/19 Principal diagnosis: IUP at 31w6d, PPROM Patient reports: loss of fluid (per HPI ), movement normal, no new complaints, no vaginal bleeding, no contractions Objective - Vital Signs Vital Signs: Vital Signs - 12hr 06/18/19 06/18/19 06/18/19 22:52 23:18 23:23 Temperature Pulse Rate 67 70 67 Respiratory Rate Blood Pressure Blood Pressure [Right] O2 Sat by Pulse 0 L 92 92 Oximetry 06/18/19 06/18/19 06/18/19 23:28 23:29 23:30 Temperature 99.0 F Pulse Rate 70 65 Respiratory Rate Blood Pressure 97/47 Blood Pressure 97/47 [Right] O2 Sat by Pulse 92 92 Oximetry 06/18/19 06/18/19 06/18/19 23:33 23:39 23:40 Temperature Pulse Rate 68 68 Respiratory Rate Blood Pressure Blood Pressure [Right] O2 Sat by Pulse 91 92 92 Oximetry 06/18/19 06/18/19 06/18/19 23:44 23:49 23:54 Temperature Pulse Rate 69 68 69 Respiratory Rate Blood Pressure Blood Pressure [Right] O2 Sat by Pulse 92 92 91 Oximetry 06/18/19 06/19/19 06/19/19 23:59 00:04 00:09 Temperature Pulse Rate 68 70 66 Respiratory Rate Blood Pressure Blood Pressure [Right] O2 Sat by Pulse 91 91 91 Oximetry 06/19/19 06/19/19 06/19/19 00:13 00:14 00:19 Temperature Pulse Rate 50 L 66 69 Respiratory Rate Blood Pressure Blood Pressure [Right] O2 Sat by Pulse 91 92 92 Oximetry 06/19/19 06/19/19 06/19/19 00:24 00:29 00:34 Temperature Pulse Rate 72 66 73 Respiratory Rate Blood Pressure Blood Pressure [Right] O2 Sat by Pulse 91 91 92 Oximetry 06/19/19 06/19/19 06/19/19 00:39 00:47 00:53 Temperature Pulse Rate 66 160 H 119 H Respiratory Rate Blood Pressure Blood Pressure [Right] O2 Sat by Pulse 91 87 91 Oximetry 06/19/19 06/19/19 06/19/19 00:58 01:07 01:17 Temperature Pulse Rate 67 Respiratory Rate Blood Pressure Blood Pressure [Right] O2 Sat by Pulse 90 92 91 Oximetry 06/19/19 06/19/19 06/19/19 01:22 01:23 01:27 Temperature Pulse Rate 65 72 Respiratory Rate Blood Pressure Blood Pressure [Right] O2 Sat by Pulse 92 93 97 Oximetry 06/19/19 06/19/19 06/19/19 01:32 01:37 01:42 Temperature Pulse Rate 67 65 61 Respiratory Rate Blood Pressure Blood Pressure [Right] O2 Sat by Pulse 97 99 98 Oximetry 06/19/19 06/19/19 06/19/19 01:47 01:52 01:57 Temperature Pulse Rate 58 L 58 L 61 Respiratory Rate Blood Pressure Blood Pressure [Right] O2 Sat by Pulse 97 97 97 Oximetry 06/19/19 06/19/19 06/19/19 02:02 02:07 02:12 Temperature Pulse Rate 62 62 60 Respiratory Rate Blood Pressure Blood Pressure [Right] O2 Sat by Pulse 96 96 96 Oximetry 06/19/19 06/19/19 06/19/19 02:17 02:22 02:27 Temperature Pulse Rate 68 61 63 Respiratory Rate Blood Pressure Blood Pressure [Right] O2 Sat by Pulse 97 97 97 Oximetry 06/19/19 06/19/19 06/19/19 02:32 02:37 02:42 Temperature Pulse Rate 64 67 66 Respiratory Rate Blood Pressure Blood Pressure [Right] O2 Sat by Pulse 97 94 95 Oximetry 06/19/19 06/19/19 06/19/19 02:43 02:47 02:48 Temperature Pulse Rate 62 71 70 Respiratory Rate Blood Pressure Blood Pressure [Right] O2 Sat by Pulse 94 96 94 Oximetry 06/19/19 06/19/19 06/19/19 02:52 02:54 02:57 Temperature Pulse Rate 72 71 76 Respiratory Rate Blood Pressure Blood Pressure [Right] O2 Sat by Pulse 95 94 94 Oximetry 06/19/19 06/19/19 06/19/19 03:00 03:02 03:07 Temperature Pulse Rate 64 70 66 Respiratory Rate Blood Pressure Blood Pressure [Right] O2 Sat by Pulse 94 95 95 Oximetry 06/19/19 06/19/19 06/19/19 03:09 03:12 03:17 Temperature Pulse Rate 63 60 62 Respiratory Rate Blood Pressure Blood Pressure [Right] O2 Sat by Pulse 94 96 96 Oximetry 06/19/19 06/19/19 06/19/19 03:22 03:24 03:27 Temperature Pulse Rate 78 66 61 Respiratory Rate Blood Pressure Blood Pressure [Right] O2 Sat by Pulse 96 94 94 Oximetry 06/19/19 06/19/19 06/19/19 03:30 03:32 03:37 Temperature Pulse Rate 63 61 62 Respiratory Rate Blood Pressure Blood Pressure [Right] O2 Sat by Pulse 94 94 95 Oximetry 06/19/19 06/19/19 06/19/19 03:39 03:41 03:43 Temperature 98.4 F Pulse Rate 50 L 71 Respiratory 18 Rate Blood Pressure 95/50 Blood Pressure 95/50 [Right] O2 Sat by Pulse 83 L Oximetry 06/19/19 06/19/19 06/19/19 03:44 07:44 07:51 Temperature 98.1 F Pulse Rate 154 H 57 L 57 L Respiratory 18 Rate Blood Pressure 93/60 Blood Pressure 93/60 [Right] O2 Sat by Pulse 81 L Oximetry 06/19/19 08:09 Temperature Pulse Rate 67 Respiratory Rate Blood Pressure 109/57 Blood Pressure [Right] O2 Sat by Pulse Oximetry - Exam Breasts: normal Cardiovascular: Regular rate, Normal S1 Lungs: Clear to auscultation, Normal air movement Abdomen: Present: normal appearance, soft, normal bowel sounds. Absent: distention, tenderness, guarding Vulva: both: normal Uterus: Present: normal, firm. Absent: bogginess, tenderness, fundal height above umbilicus FHR: category 1 Extremities: normal Deep Tendon Reflex Grade: Normal +2 - Labs Labs: Abnormal Labs 06/15/19 06/16/19 06/16/19 22:15 06:16 08:43 WBC 11.5 H RDW 13.1 L [place] % (Auto) 7.9 H [place] # 0.9 H Seg Neutrophils # 8.0 H Magnesium 4.40 H 4.60 H 06/16/19 06/17/19 06/17/19 15:27 00:01 07:41 WBC RDW [place] % (Auto) [place] # Seg Neutrophils # Magnesium 4.80 H 4.80 H 4.70 H 06/17/19 06/17/19 06/18/19 15:47 21:18 00:08 WBC RDW [place] % (Auto) [place] # Seg Neutrophils # Magnesium 4.70 H 4.40 H 4.50 H 06/18/19 06/18/19 05:36 13:14 WBC RDW [place] % (Auto) [place] # Seg Neutrophils # Magnesium 4.50 H 3.10 H Laboratory Results - last 24 hr 06/18/19 13:14 Magnesium 3.10 H
[2019-06-19] MEDS: PRENATAL VIT27-FE FUMARATE-FOLIC ACID VIT TAB PO SCH (10:21)
[2019-06-19] MEDS: DOCUSATE SODIUM 100 MG CAP PO PRN (14:05)
[2019-06-19] MEDS ORDERED: fentaNYL 100 MCG/2 ML INJ IV PRN (23:05)
[2019-06-19] MEDS ORDERED: ZOLPIDEM 5 MG TAB PO PRN (23:06)
[2019-06-20] MEDS: LACTATED RINGERS 1,000 ML IV SCH (00:58)
[2019-06-20] MEDS: ERYTHROMYCIN BASE 250 MG CAPSULE DR PO SCH (05:58)
[2019-06-20] MEDS: AMOXICILLIN 250 MG CAP PO SCH (05:58)
[2019-06-20] MEDS ORDERED: SODIUM CHLORIDE 0.9% 1000 ML 1,000 ML ONE (08:35)
--- NOTE | 2019-06-20 08:39 | Progress Note ---
Assessment and Plan : IUP at 32+1weeks s/p betamethasone on 06/15 and 06/16; magnesium sulfate for neuroprotection; BPP 03/1106/15/19; no signs/symptoms of chorioamnionitis at this time PPROM on latency antibiotics - on po abx Contractions noted and variable decels P: Will attempt amnioinfusion -if variables continue will proceed with primary csec close monitor of and maternal status Subjective - Subjective Date of service: 06/20/19 Principal diagnosis: IUP at 31w6d, PPROM Patient reports: loss of fluid (per HPI ), movement normal, contractions, no new complaints, no vaginal bleeding Objective - Vital Signs Vital Signs: Vital Signs - 12hr 06/19/19 06/19/19 06/20/19 22:03 22:06 01:05 Temperature 98.2 F 98.4 F Pulse Rate 70 Respiratory 16 18 Rate Blood Pressure 97/52 06/20/19 06/20/19 06/20/19 03:30 06:00 06:02 Temperature 98.9 F 98.2 F Pulse Rate 60 70 Respiratory 18 18 Rate Blood Pressure 97/64 96/59 06/20/19 07:28 Temperature Pulse Rate 62 Respiratory Rate Blood Pressure 99/64 - Exam Breasts: normal Cardiovascular: Regular rate Lungs: Clear to auscultation, Normal air movement Abdomen: Present: normal appearance, soft, normal bowel sounds. Absent: distention, tenderness, guarding Uterus: Present: normal, firm. Absent: bogginess, tenderness FHR: category 2 Cervical Dilatation: 5 Cervical Effacement Percentage: 100 station: 0 Uterine Contraction Pattern: Irregular Uterine Tone Measurement Phase: Contraction Uterine Contraction Intensity: Mild Extremities: normal Deep Tendon Reflex Grade: Normal +2 - Labs Labs: Abnormal Labs 06/15/19 06/16/19 06/16/19 22:15 06:16 08:43 WBC 11.5 H RDW 13.1 L [place] % (Auto) 7.9 H [place] # 0.9 H Seg Neutrophils # 8.0 H Magnesium 4.40 H 4.60 H 06/16/19 06/17/19 06/17/19 15:27 00:01 07:41 WBC RDW [place] % (Auto) [place] # Seg Neutrophils # Magnesium 4.80 H 4.80 H 4.70 H 06/17/19 06/17/19 06/18/19 15:47 21:18 00:08 WBC RDW [place] % (Auto) [place] # Seg Neutrophils # Magnesium 4.70 H 4.40 H 4.50 H 06/18/19 06/18/19 05:36 13:14 WBC RDW [place] % (Auto) [place] # Seg Neutrophils # Magnesium 4.50 H 3.10 H
[2019-06-20] MEDS ORDERED: OXYTOCIN DRIP 30,000 MILLIUNITS/500 ML BAG IV ONE (09:29)
[2019-06-20] MEDS ORDERED: OXYTOCIN DRIP 30 UNITS/500 ML BAG IV SCH (09:40)
[2019-06-20 10:16] LABS: Basophils % (Auto) 0.1 % (0.0-1.8); Eosinophils % (Auto) 0.2 % (0.0-4.3); Hematocrit 32.5 % (30.3-42.9); Hemoglobin 11.2 gm/dl (10.1-14.3); Mean Corpuscular HGB Conc 35 % (30-34); Mean Corpuscular Volume 90 fl (79-97); Monocytes # (Auto) 1.2 K/mm3 (0.0-0.8); Monocytes % (Auto) 6.8 % (0.0-7.3); Platelet Count 246 K/mm3 (140-440); Red Blood Count 3.63 M/mm3 (3.65-5.03); Red Cell Distribution Width 13.3 % (13.2-15.2)
[2019-06-20] MEDS ORDERED: AMPICILLIN/NS 2 GM/100 ML 2 GM/100 ML BAG IV ONE (10:56)
[2019-06-20] MEDS ORDERED: OXYTOCIN 20 UNIT/1000ML DRIP 40,000 MILLIUNITS/2,000 ML BAG IV ONE (11:35)
[2019-06-20] MEDS ORDERED: LIDOCAINE (2%) 20 MG/1 ML VIAL 20 ML MDV INFILTRATI ONE (11:48)
[2019-06-20] MEDS ORDERED: WITCH HAZEL/ GLYCERIN PAD TP PRN (12:04)
[2019-06-20] MEDS ORDERED: oxyCODONE /ACETAMINOPHEN 5-325MG TAB PO PRN (12:04)
[2019-06-20] MEDS ORDERED: MAGNESIUM HYDROXIDE (MOM) ORAL LIQD UDC PO PRN (12:04)
[2019-06-20] MEDS ORDERED: HYDROcodone/ACETAMINOPHEN 5-325 MG TAB PO PRN (12:04)
[2019-06-20] MEDS ORDERED: PROMETHAZINE 25 MG RECT SUPP PR PRN (12:04)
[2019-06-20] MEDS ORDERED: ONDANSETRON 4 MG/2 ML INJ IV PRN (12:04)
[2019-06-20] MEDS ORDERED: KETOROLAC 30 MG/1 ML INJ IV PRN (12:04)
[2019-06-20] MEDS ORDERED: PROMETHAZINE 25 MG TAB PO PRN (12:04)
[2019-06-20] MEDS ORDERED: ACETAMINOPHEN 325 MG TAB PO PRN (12:04)
[2019-06-20] MEDS ORDERED: LANOLIN/ZINC/DIMETHICONE (LANSINOH) 7 GM TP PRN (12:04)
[2019-06-20] MEDS ORDERED: diphenhydrAMINE 25 MG CAP PO PRN (12:04)
--- NOTE | 2019-06-20 12:09 | Procedure Note ---
OB Delivery Note - Delivery Date of Delivery: 06/20/19 Surgeon: JASON BERNARD Estimated blood loss: other (400cc) - Vaginal Delivery presentation: vertex Delivery position: OA Intrapartum events: labor-<37 weeks, uterine inversion Delivery induction: none Delivery augmentation: pitocin Delivery monitor: external FHT, external uterine Route of delivery: Delivery placenta: spontaneous Delivery cord: 3 umbilical vessels Episiotomy: none Delivery laceration: 1st degree Delivery repair: vicryl Delivery comments: Patient was noted to be c/c/ +1 asnd commenced to pushing a viable male infant at 1135 with a weight of 4 pounds 6 oz. The baby head and shoulders delivered easily. The cord was clamped and cut and placed on mom chest. The placenta delivered intact with 3 vessel cord at 1140. Survey of perineum revealed 1st degree laceration repaired with 3-0 vicryl in normal fashion after lidocaine injected. EBL 400 cc. Patient tolerated procedure well and bonding with baby. NICU present and attended delivery - A at 1 minute: 8 at 5 minutes: 9 Gender: Male (4 pound 6 oz)
[2019-06-20] MEDS ORDERED: OXYTOCIN 20 UNIT/1000ML DRIP 20 UNITS/1,000 ML BAG IV SCH (13:00)
[2019-06-21] MEDS: IBUPROFEN 600 MG TAB PO SCH ×4 (00:35→22:45)
[2019-06-21 01:05] LABS: Hematocrit 30.9 % (30.3-42.9); Hemoglobin 10.6 gm/dl (10.1-14.3)
--- NOTE | 2019-06-21 08:20 | Progress Note ---
Assessment and Plan A: PPD#1 s/p at 32wks P: Routine care. Subjective - Subjective Date of service: 06/21/19 Principal diagnosis: PPROM, s/p Interval history: No issues overnight. Pt without complaints. Moderate lochia. Patient reports: appetite normal, voiding normally, pain well controlled, ambulating normally [place]: doing well, in NICU Objective - Vital Signs Latest vital signs: Vital Signs Temp Pulse Resp BP BP Pulse Ox 06/21/19 00:24 98.7 F 71 18 92/60 98 06/20/19 21:28 98.9 F 64 18 95/64 06/20/19 16:58 99.4 F 64 18 103/58 97 06/20/19 15:20 99.1 F 80 20 108/62 98 06/20/19 14:23 100 H 114/58 06/20/19 14:08 78 126/63 06/20/19 13:53 80 105/63 06/20/19 13:38 64 101/59 06/20/19 13:23 68 100/60 06/20/19 13:08 61 97/57 06/20/19 12:54 67 98/55 06/20/19 12:38 74 103/64 06/20/19 12:35 99.1 F 06/20/19 12:24 62 102/61 06/20/19 12:09 99.0 F 64 105/57 Intake and Output 06/20/19 06/21/19 06/21/19 22:59 06:59 14:59 Intake Total 240 480 Output Total 250 1400 Balance -10 920 Intake: Oral 480 Intake, Free Water 240 Output: Urine 250 1400 Void 250 1400 Other: Total, Intake Amount 240 Total, Output Amount 250 400 # Voids Void 1 - Exam Breasts: Present: deferred Cardiovascular: Present: Regular rate Lungs: Present: Clear to auscultation Abdomen: Present: soft Uterus: Present: fundal height at umbilicus Extremities: Present: normal - Labs Labs: Abnormal lab results 06/20/19 Range/Units 09:43 WBC 16.9 H (4.5-11.0) K/mm3 RBC 3.63 L (3.65-5.03) M/mm3 MCHC 35 H (30-34) % Lymph % (Auto) 12.0 L (13.4-35.0) % [place] # 1.2 H (0.0-0.8) K/mm3 Seg Neutrophils % 80.9 H (40.0-70.0) % Seg Neutrophils # 13.7 H (1.8-7.7) K/mm3
[2019-06-21] MEDS: PRENATAL VIT27-FE FUMARATE-FOLIC ACID VIT TAB PO SCH ×3 (10:45→10:48)
[2019-06-21] MEDS ORDERED: MEASLES, MUMPS & RUBELLA 12,500 UNIT/0.5 ML VACCINE SUB-Q ONE (12:04)
[2019-06-21] MEDS ORDERED: TETANUS,DIPH,PERTUSS(ACELL) VACCINE 0.5 ML SYRINGE IM ONE (12:04)
[2019-06-21] MEDS: DOCUSATE SODIUM 100 MG CAP PO PRN (14:14)
--- NOTE | 2019-06-22 08:52 | Progress Note ---
Assessment and Plan - Patient Problems (1) delivery Current Visit: Yes Status: Acute Plan to address problem: patient doing well discharge home Subjective - Subjective Date of service: 06/22/19 Principal diagnosis: PPROM, s/p Interval history: Patient without complaints. Pain well controlled Patient reports: appetite normal, voiding normally, pain well controlled [place]: doing well, in NICU Objective - Vital Signs Latest vital signs: Vital Signs Temp Pulse Resp BP BP Pulse Ox 06/21/19 23:48 98.3 F 61 20 102/70 100 06/21/19 16:53 98 F 18 107/70 Intake and Output 06/21/19 06/22/19 06/22/19 22:59 06:59 14:59 Intake Total 240 120 Balance 240 120 Intake: Oral 240 120 Other: Total, Intake Amount 240 120 # Voids Void 1 1 - Exam Uterus: Present: normal, firm
--- NOTE | 2019-06-22 08:54 | Discharge Summary ---
Providers - Providers Date of Admission: 06/15/19 21:31 Date of discharge: 06/22/19 Attending physician: CHERIE CORREIA 06/16/19 07:00 Consult to Physician [CONS] Routine Comment: Consulting Provider: CHARLY CARMONA Physician Instructions: Reason For Exam: PPROM at 31 wks 06/16/19 09:04 Consult to Physician [CONS] Routine Comment: Consulting Provider: BIANCA GANDARA Physician Instructions: Reason For Exam: IUP at 31 wks, PPROM Primary care physician: CHERIE CORREIA Hospitalization Reason for admission: IUP - , labor Delivery: Discharge diagnosis: delivery Hospital course: Patient admitted with PPROM. Subsequently went into labor. Had a . uncomplicated Condition at discharge: Good Disposition: [id number] TO HOME OR SELFCARE - Discharge Diagnoses (1) delivery Status: Acute Plan - Discharge Medications Prescriptions: Docusate Sodium [Colace] 100 mg PO BID PRN #60 capsule PRN Reason: Constipation Ferrous Sulfate [Feosol 325 MG tab] 325 mg PO BID #60 tablet Ibuprofen [Motrin] 800 mg PO Q8HR PRN #30 tablet PRN Reason: Pain, Moderate (4-6) - Provider Discharge Summary Activity: no sex for 6 weeks, no heavy lifting 4 weeks, no strenuous exercise Diet: routine Instructions: routine Additional instructions: [] Smoking cessation referral if applicable(refer to patient education folder for contact #) [] Refer to [facility] Booklet Call your doctor immediately for: * Fever > 100.5 * Heavy vaginal bleeding ( >1 pad per hour) * Severe persistent headache * Shortness of breath * Reddened, hot, painful area to leg or breast * schedule followup in 4 weeks - Follow up plan
[2019-06-22 13:09] VITALS: BP 91/39
== END 2019-06-22 11:30 | disposition home or self-care (01) | DRG 775 ==
LOC: TRG 20:28 → LD 21:31 → OB 06-20 15:19
PROVIDERS: ADMIT Obstetrics & Gynecology; ATTEND Obstetrics & Gynecology
PROC: 10E0XZZ Delivery of Products of Conception, External Approach (ICD-10-PCS; principal; 2019-06-20)
PROC: 0HQ9XZZ Repair Perineum Skin, External Approach (ICD-10-PCS; 2019-06-20)
PROC: 3E0234Z Introduction of Serum, Toxoid and Vaccine into Muscle, Percutaneous Approach (ICD-10-PCS; 2019-06-21)
DX: O42.913 Preterm premature rupture of membranes, unspecified as to length of time between rupture and onset of labor, third trimester (principal); O60.14X0 Preterm labor third trimester with preterm delivery third trimester, not applicable or unspecified; O34.33 Maternal care for cervical incompetence, third trimester; O69.81X0 Labor and delivery complicated by cord around neck, without compression, not applicable or unspecified; O70.0 First degree perineal laceration during delivery; Z83.3 Family history of diabetes mellitus; Z23 Encounter for immunization; Z3A.31 31 weeks gestation of pregnancy; Z37.0 Single live birth
CPT/HCPCS: 36415; 76816; 76819; 81001; 83735; 85014; 85018; 85025; 86592; 86850; 86900; 86901; 88307; 96360; 96361; 96365; 96366; 96372; G0378; J0290; J0690; J0702; J1364; J2590; J3010; J3475; J7030; J7120